=== PATIENT | male | born 1980 | race Caucasian/White ===

== ENCOUNTER 2020-08-19 21:49 | Emergency (ER) | payer OTHER ==
--- NOTE | 2020-08-19 23:20 | ER Document Report ---
ED Medical Screen (RME) - General Chief Complaint: Chest Pain Stated Complaint: CHEST PAIN,LIGHT HEADED, LEFT ARM PAIN Time Seen by Provider: 08/19/20 23:15 Primary Care Provider: JAZ NEGRETE [Primary Care Provider] - Follow up as needed Mode of Arrival: Ambulatory Information source: Patient - HPI Patient complains to provider of: STEVENSON Onset: This morning Notes: 08/19/20 23:19 Patient here with complaints of intermittent chest pain and intermittent feeling lightheaded that started this morning. Symptoms are nonexertional. He denies any shortness of breath. No fever cough. No abdominal pain. No nausea, vomiting, diarrhea. No known history of hypertension, high cholesterol, diabetes, CAD. Patient denies any recent long trips or surgeries, leg swelling, cancer, history of DVT or PE. Patient has no other specific complaints at this time. Exam: Nontoxic, no distress. Lungs clear throughout. Heart sounds normal. No focal deficits. An initial examination was made on the patient as part of the triage process, and it was determined a more comprehensive evaluation was necessary. Initial orders were placed and patient was transferred to another provider in the ED who assumed care and finished evaluation and plan. - Related Data Allergies/Adverse Reactions: No Known Allergies Allergy (Unverified 08/19/20 23:15) Doctor's Discharge - Discharge Referrals: JAZ NEGRETE [Primary Care Provider] - Follow up as needed
[2020-08-19 23:46] LABS: ABSOLUTE BASOPHILS # (AUTO) 0.1 10^3/uL (0.0-0.2); ABSOLUTE EOSINOPHILS # (AUTO) 0.1 10^3/uL (0.0-0.6); ABSOLUTE MONOCYTES (AUTO) 0.4 10^3/uL (0.1-1.4); ABSOLUTE NEUT (AUTO) 3.5 10^3/uL (1.7-8.2); BASOPHILS % (AUTO) 1.1 % (0-2); EOSINOPHILS % (AUTO) 1.8 % (0-6); HEMATOCRIT 44.7 % (37.9-51.0); HEMOGLOBIN 15.4 g/dL (13.5-17.0); LYMPHOCYTES % (AUTO) 33.3 % (13-45); MEAN CORPUSCULAR HEMOGLOBIN 30.2 pg (27.0-33.4); MEAN CORPUSCULAR HGB CONC 34.4 g/dL (32.0-36.0); MEAN CORPUSCULAR VOLUME 88 fl (80-97); MONOCYTES % (AUTO) 6.3 % (3-13); PLATELET COUNT 166 10^3/uL (150-450); RED BLOOD COUNT 5.09 10^6/uL (4.35-5.55); RED CELL DISTRIBUTION WIDTH 13.2 % (11.5-14.0); SEGMENTED NEUTROPHILS % (AUTO) 57.5 % (42-78); TOTAL CELLS COUNTED % (AUTO) 100 %; WHITE BLOOD COUNT 6.1 10^3/uL (4.0-10.5)
[2020-08-19 23:55] LABS: ALBUMIN 4.7 g/dL (3.5-5.0); ALKALINE PHOSPHATASE 97 U/L (38-126); ANION GAP 7 (5-19); ASPARTATE AMINO TRANSFERASE 33 U/L (17-59); BILIRUBIN,DIRECT 0.2 mg/dL (0.0-0.4); BILIRUBIN,TOTAL 0.3 mg/dL (0.2-1.3); BLOOD UREA NITROGEN 18 mg/dL (7-20); CALCIUM 9.8 mg/dL (8.4-10.2); CARBON DIOXIDE 30 mmol/L (22-30); CHLORIDE 104 mmol/L (98-107); CREATINE KINASE 189 U/L (55-170); GLUCOSE 97 mg/dL (75-110); POTASSIUM 3.8 mmol/L (3.6-5.0); TOTAL PROTEIN 7.8 g/dL (6.3-8.2)
[2020-08-20 00:13] LABS: CREATINE KINASE MB 2.67 ng/mL (<4.55)
[2020-08-20 00:19] LABS: TROPONIN I < 0.012 ng/mL
--- NOTE | 2020-08-20 00:48 | EKG REPORT ---
SEVERITY:- BORDERLINE ECG - SINUS TACHYCARDIA PROBABLE LEFT ATRIAL ABNORMALITY : Confirmed by: Anai Henry 20-Aug-2020 00:47:23
--- NOTE | 2020-08-20 01:10 | RADIOLOGY REPORT (SQ) ---
EXAM DESCRIPTION: X-ray two view chest. CLINICAL HISTORY: 39 years Male, CP COMPARISON: None. TECHNIQUE: PA and Lateral views of the chest performed on 08/20/2020 at 12:18 AM FINDINGS: The lungs are well expanded and are clear. The costophrenic sulci are clear. There is no evidence of a pneumothorax. The cardiac silhouette is normal in size. The mediastinal contours are normal. No acute osseous abnormalities are identified. No focal soft tissue abnormalities are identified. IMPRESSION: No evidence of acute intrathoracic disease.
--- NOTE | 2020-08-20 06:36 | ER Document Report ---
ED General - General Chief Complaint: Chest Pain Stated Complaint: CHEST PAIN,LIGHT HEADED, LEFT ARM PAIN Time Seen by Provider: 08/19/20 23:15 Primary Care Provider: AJZ NEGRETE [NO LOCAL MD] - Follow up as needed Mode of Arrival: Ambulatory - [facility] Notes: Chief complaint: Chest pain History of present illness: Previously healthy 39-year-old male on no regular medications with no known allergies and no current primary care physician presents for evaluation of mild chest pain (2/10 intensity) and center of chest waxing and waning in severity since noon yesterday. Patient has never had such discomfort previously. No associated radiation, dyspnea, diaphoresis or nausea/vomiting. No recent travel. No recent trauma. No fever, cough or sputum production. Pain is aggravated with touching the area. He says he has been "gassy" in the last 24 hours. Patient is a former smoker having quit about 2 years ago. He is not diabetic. He has no known history of hypertension. No known history of hyperlipidemia. Family history negative for CAD although he did have a brother who had cardiac problems related to myocarditis. No family history of thromboembolic disease. No personal history of thromboembolic disease. HEART Score: HISTORY 1 ECG 0 AGE 1 RISK FACTORS 1 TROPONIN 0 TOTAL: 2 If HEART score is < 3 AND both tronponin measurments are normal, the 30 day risk of a major adverse cardiac event (all-cause mortality, myocardia infarction or need for coronary revscularization) is < 1% (Sensitivity 100%, NPV 100%). 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 HENT: Negative for sore throat. Eyes: Negative for visual changes. Cardiovascular: As per HPI. Respiratory: Negative for shortness of breath. Gastrointestinal: Negative for abdominal pain, vomiting or diarrhea. Genitourinary: Negative for dysuria. Musculoskeletal: Negative for back pain. Skin: Negative for rash. Neurological: Negative for headaches, weakness or numbness. 10 point ROS negative except as marked above and in HPI. Physical Exam - Vital signs Vitals: Temp Pulse Resp BP Pulse Ox 98.2 F 93 20 179/97 H 98 08/19/20 22:00 08/19/20 22:00 08/19/20 22:00 08/19/20 22:00 08/19/20 22:00 - Notes Notes: GENERAL: Well-developed well-nourished middle-age male appearing in no acute distress. SKIN: Good turgor no rashes. HEAD: Normocephalic atraumatic. EYES: PERRLA. EOMI. Conjunctivae and sclerae clear. EARS: CANALS AND TMS CLEAR. NOSE: CLEAR. MOUTH: Moist mucosa. Good dentition. No stridor or edema. No drooling. NECK: Supple. No masses or thyromegaly. No adenopathy. Carotids 2+ without bruits. No JVD. BACK: Symmetrical without tenderness. CHEST: Respirations unlabored. Breath sounds clear and symmetrical. HEART: Mild tenderness to palpation anterior chest wall. Regular rhythm. No murmur gallop or rub. ABDOMEN: Soft nontender without masses, organomegaly or rebound. Bowel sounds normally active. No bruits. GENITALIA: Deferred. EXTREMITIES: No edema. No calf tenderness. Cap refill less than 1.5 seconds. Dorsalis pedis and posterior tibial pulses 3+ and symmetrical. NEUROLOGICAL: GCS 15. Alert and oriented x3. Normal gait. Fluent speech. Cranial nerves II through XII intact. Sensorimotor and cerebellar normal. Normal tone. PSYCHIATRIC: Appropriate affect. Course - Vital Signs Vital signs: Temp Pulse Resp BP Pulse Ox 98.2 F 93 13 120/91 H 98 08/19/20 22:00 08/19/20 22:00 08/20/20 08:32 08/20/20 08:32 08/20/20 08:32 - Laboratory Results Result Diagrams: 08/19/20 23:32 08/19/20 23:32 Laboratory Results Interpreted: 08/19/20 23:32 Creatine Kinase 189 H Critical Laboratory Results Reviewed: No Critical Results - Radiology Results Radiology Results Interpreted: 08/20/20 06:40 Chest X-Ray 08/19/20 23:24 IMPRESSION: No evidence of acute intrathoracic disease. Critical Radiology Results Reviewed: No Critical Results - EKG Interpretation by Me Additional EKG results interpreted by me: 08/20/20 06:40 Twelve-lead EKG reviewed by me contemporaneously: 2153 hrs. 08/19/2020 Indication for study: Chest pain Rhythm: Sinus tachycardia Rate: 101 Intervals: Normal intervals QRS axis: +75 ST/T wave changes: None Comparison with prior tracing: None Interpretation: Sinus tachycardia Discharge - Discharge Clinical Impression: Chest pain Condition: Stable Disposition: HOME, SELF-CARE Additional Instructions: Chest Pain of Unclear Cause The exact cause of your chest pain isn't clear. Fortunately, there is no evidence of a dangerous medical condition. Further testing may be required to find the source of the pain. Most often, we find that this pain is coming from the chest wall -- the muscles or rib joints in the chest. But chest pain can come from the lung and lung lining, the esophagus, the heart valves or heart lining, and even the stomach or gallbladder. Rest. Eat lightly until the pain is gone. We may prescribe medicine for pain and inflammation. You should call the physician immediately if the pain radiates to the shoulder, jaw or arms; if you start to run a fever or develop a cough; or if you develop shortness of breath, or other new or alarming symptoms. Take prescribed medication as instructed. Return here as needed for new or worsening symptoms: Pain that is worsening or unimproved Uncontrolled vomiting High fever or shaking chills Overall worsening You have been provided the name of a clinic/physician for follow-up visit and should schedule recheck within the next few days. Prescriptions: Naproxen 500 mg PO BID PRN 7 Days #14 tablet PRN Reason: Referrals: JAZ NEGRETE [NO LOCAL MD] - Follow up as needed [facility] [Provider Group] - Follow up as needed
[2020-08-20 09:13] VITALS: BP 130/88
--- NOTE | 2020-08-20 23:42 | EKG REPORT ---
SEVERITY:- NORMAL ECG - SINUS RHYTHM : Confirmed by: Anai Henry 20-Aug-2020 23:41:23
== END 2020-08-20 09:28 | disposition home or self-care (01) ==
LOC: ER 21:49
DX: R07.9 Chest pain, unspecified (principal); R00.0 Tachycardia, unspecified; Z87.891 Personal history of nicotine dependence; Z82.49 Family history of ischemic heart disease and other diseases of the circulatory system
CPT/HCPCS: 36415; 71046; 80053; 82550; 82553; 84484; 85025; 85379; 93005; 93010; 99285